=== PATIENT | male | born 1965 | race Caucasian/White ===

== ENCOUNTER 2018-09-28 18:31 | Emergency (ER) | payer OTHER ==
[~2018-09-28] VITALS: Ht 170.2 cm; Wt 172.7 kg
[2018-09-28] MEDS ORDERED: TOPR200T PO (18:42)
[2018-09-28] MEDS ORDERED: VENL100T PO (18:42)
[2018-09-28 19:05] LABS: BASO # 0.1 10^3/uL (0.0-0.2); BASO % 0.7 % (0.0-1.0); EOS # 0.3 10^3/uL (0.0-0.50); EOS % 2.8 % (0.0-3.0); HEMATOCRIT 41.9 % (42.0-52.0); LYMPH # 3.1 10^3/uL (1.5-4.5); MEAN CORPUSCULAR HEMOGLOBIN 30.6 pg (27.0-33.0); MEAN CORPUSCULAR HGB CONC 33.4 g/dl (32.0-36.5); MEAN CORPUSCULAR VOLUME 91.7 fl (80.0-96.0); MONO % 8.6 % (0.0-5.0); NEUTROPHILS # 7.2 10^3/uL (1.8-7.7); NEUTROPHILS % 60.8 % (36.0-66.0); PLATELET COUNT, AUTOMATED 247 10^3/uL (150-450); RED BLOOD COUNT 4.57 10^6/uL (4.30-6.10); WHITE BLOOD COUNT 11.8 10^3/uL (4.0-10.0)
[2018-09-28 19:16] LABS: INR 1.11; PROTHROMBIN TIME 14.5 SECONDS (12.1-14.4)
[2018-09-28 19:17] LABS: PARTIAL THROMBOPLASTIN TIME 32.6 SECONDS (25.4-37.6)
[2018-09-28] MEDS ORDERED: ASPIRIN 81 MG CHEW TABLET PO ONE (19:30)
[2018-09-28] MEDS ORDERED: NITROGLYCERIN 0.4 MG SUBL TABLET SL PRN (19:30)
[2018-09-28 19:35] LABS: ALBUMIN 3.4 GM/DL (3.2-5.2); ALT/SGPT 52 U/L (12-78); BILIRUBIN,DIRECT 0.2 MG/DL (0.0-0.2); BILIRUBIN,TOTAL 0.5 MG/DL (0.2-1.0); BLOOD UREA NITROGEN 16 MG/DL (7-18); CALCIUM LEVEL 8.8 MG/DL (8.5-10.1); CARBON DIOXIDE LEVEL 31 MEQ/L (21-32); CHLORIDE LEVEL 101 MEQ/L (98-107); CPK CREATINE PHOSPHOKINASE 231 U/L (39-308); CREATININE FOR GFR 0.69 MG/DL (0.70-1.30); GLOMERULAR FILTRATION RATE > 60.0 (>56); GLUCOSE, FASTING 90 MG/DL (70-100); LIPASE 198 U/L (73-393); MB/CK RELATIVE INDEX 0.56 (< OR =4); POTASSIUM SERUM 4.3 MEQ/L (3.5-5.1); SODIUM LEVEL 138 MEQ/L (136-145); TOTAL PROTEIN 7.1 GM/DL (6.4-8.2); TROPONIN I < 0.02 NG/ML (< 0.10)
[2018-09-28 19:56] VITALS: BP 172/79
[2018-09-28] MEDS ORDERED: ISOVUE-370 76% 100ML VIAL (Q9967) As Ordered ONE (20:22)
--- NOTE | 2018-09-28 21:36 | REPVR ---
EXAM: CT Angiography Chest With Contrast EXAM DATE/TIME: 09/28/2018 8:33 PM CLINICAL HISTORY: 53 years old, male; Pain; Chest pain TECHNIQUE: Axial computed tomographic angiography images of the chest with intravenous contrast using CT angiography protocol. All CT scans at this facility use at least one of these dose optimization techniques: automated exposure control; mA and/or kV adjustment per patient size (includes targeted exams where dose is matched to clinical indication); or iterative reconstruction. Coronal and sagittal reformatted images were created and reviewed. MIP reconstructed images were created and reviewed. CONTRAST: Contrast Material: 75 ml of iso 370; Contrast Route: iv COMPARISON: CR Chest, 2 view PA, Lat 09/28/2018 6:58 PM FINDINGS: Pulmonary arteries: The main pulmonary artery measures 25 mm with less than optimal opacification. No gross central pulmonary embolism is identified. Aorta: The ascending thoracic aorta measures 30 mm. Lungs: Normal. No consolidation. No masses. Pleural space: Normal. No pneumothorax. No pleural effusion. Heart: Normal. No cardiomegaly. No pericardial effusion. Liver: There is fatty infiltration of the liver. Lymph nodes: Unremarkable. No enlarged lymph nodes. Bones/joints: Unremarkable. No acute fracture. Soft tissues: Unremarkable. IMPRESSION: Essentially negative CTA chest with less than optimal opacification of the pulmonary artery. No gross central pulmonary embolism is identified. Electronically signed by: Fab Elkins On 09/28/2018 21:35:41 PM
[2018-09-28] MEDS ORDERED: ASPI1TAB PO (22:37)
[2018-09-28 23:01] VITALS: BP 166/76
--- NOTE | 2018-09-29 09:19 | ECGEPIP ---
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
== END 2018-09-29 | disposition home or self-care (01) ==
LOC: M ED 18:31
DX: R07.89 Other chest pain (principal); I10 Essential (primary) hypertension; E87.5 Hyperkalemia; F32.9 Major depressive disorder, single episode, unspecified; F41.1 Generalized anxiety disorder; Z79.82 Long term (current) use of aspirin; Z79.899 Other long term (current) drug therapy; Z88.0 Allergy status to penicillin
CPT/HCPCS: 71046; 71275; 80048; 80076; 82550; 82553; 83690; 85025; 85610; 85730; 93005; 93041; 94760; 99285; Q9967

== ENCOUNTER → 2020-01-03 | Outpatient (CLI) | payer OTHER ==
[~2020-01-03] MED LIST: ASPI81TA26 PO; TOPR200T PO; VENL100T PO
--- NOTE | 2020-01-10 14:12 | SLEEPCENT ---
DATE OF STUDY: 01/03/2020 ORDERED BY: Millie Sharma Nocturnal polysomnography was performed for the titration of pressure therapy in this patient with obstructive sleep apnea syndrome and apnea-hypopnea index of 37. For testing, the patient was fit with a ResMed Quattro full face mask of medium size and 4 cm of water pressure were applied to the circuit and the lights were extinguished. 7 hours and 19 minutes of data were reviewed. There were 283.5 minutes of sleep identified. Sleep latency was prolonged at 91.5 minutes. REM latency was short at 54 minutes. Sleep architecture was fair with 2 REM cycles. Improvement was noted on optimal pressure therapy. Overall sleep efficiency was 65.3%. The patient's electrocardiogram showed a sinus rhythm with an average heart rate of 65 beats per minute. Electroencephalogram (EEG) showed some EKG bleed through, but no focal events. Normal waveforms were seen for awake and sleep. Respiratory events were fully palliated with C-PAP at a pressure of 11. There was some limb activity in the limb leads. Limb movement arousal index was 4.9. IMPRESSION: Obstructive sleep apnea syndrome (G47.33). RECOMMENDATION: Nightly use of pressure therapy at 11 cm of water.
== END ==
LOC: M SLEEP 20:00
PROVIDERS: ATTEND Nurse Practitioner Family
DX: G47.33 Obstructive sleep apnea (adult) (pediatric) (principal)

== ENCOUNTER → 2021-06-13 | Outpatient (CLI) | payer MEDICAID | LOC: M OUTALCOH 07:36 | PROVIDERS: ATTEND Psychiatry & Neurology Psychiatry | DX: F10.20 Alcohol dependence, uncomplicated (principal) ==